=== PATIENT | male | born 1950 | race Caucasian/White ===

== ENCOUNTER → 2021-02-07 | Outpatient (CLI) | payer MEDICARE, OTHER ==
[~2021-02-07] MED LIST: ERGO400 PO; FISH1000 PO; HYDCOR10 PO; HYDR1TAB94 PO; LEVO750 PO; MAGCIT300 PO; METR500 PO; MULTI VITAMIN1 EACH PO; PRED20 PO; PROM25 PO; SULTRIDS PO; TOCO1000 PO; VITAMINS
== END | disposition home or self-care (01) ==
LOC: LAB 10:00 → LAB SHORT 10:00
DX: L82.1 Other seborrheic keratosis (principal); L08.9 Local infection of the skin and subcutaneous tissue, unspecified
CPT/HCPCS: 87070; 87077; 87186; 87205

== ENCOUNTER 2021-08-20 11:24 | Emergency (ER) | payer MEDICARE, OTHER ==
[~2021-08-20] VITALS: Ht 180.3 cm; Wt 95.2 kg
[2021-08-20 12:09] LABS: BASOPHILS ABSOLUTE AUTO 0.04 K/mm3 (0.00-0.23); BASOPHILS PERCENT AUTO 1 % (0-2); EOSINOPHILS ABSOLUTE AUTO 0.21 K/mm3 (0.00-0.68); EOSINOPHILS PERCENT AUTO 3 % (0-6); Hematocrit 49.6 % (37.0-53.0); Hemoglobin 16.6 g/dL (13.5-17.5); IMMATURE GRAN ABSOLUTE AUTO 0.02 K/mm3 (0.00-0.10); IMMATURE GRAN PERCENT AUTO 0 % (0-1); LYMPHOCYTES ABSOLUTE AUTO 1.93 K/mm3 (0.84-5.20); LYMPHOCYTES PERCENT AUTO 31 % (21-46); MONOCYTES ABSOLUTE AUTO 0.82 K/mm3 (0.16-1.47); MONOCYTES PERCENT AUTO 13 % (4-13); Mean Corpuscular HGB 30.4 pg (26.0-34.0); Mean Corpuscular HGB Conc 33.5 g/dL (31.5-36.5); Mean Corpuscular Volume 91 fL (80-100); NEUTROPHILS ABSOLUTE AUTO 3.27 K/mm3 (1.96-9.15); NEUTROPHILS PERCENT AUTO 52 % (41-73); Platelet Count 279 K/mm3 (150-400); RDW Coefficient Variation 12.3 % (11.7-14.2); RDW Standard Deviation 40.7 fL (35.1-46.3); Red Blood Cell Count 5.46 M/mm3 (4.30-5.90); White Blood Cell Count 6.29 K/mm3 (4.00-11.30)
[2021-08-20 12:25] LABS: Alanine Aminotransfer (ALT/SGP 36 U/L (12-78); Albumin, Blood 3.5 g/dL (3.4-5.0); Alk Phos 89 U/L (50-136); Anion Gap 4 mmol/L (6-16); Aspartate Aminotrans (AST/SGOT 26 U/L (12-37); Bilirubin, Total 0.4 mg/dL (0.1-1.0); Blood Urea Nitrogen 14 mg/dL (8-24); Bun/Creatinine Ratio 12.6 (12.0-20.0); CO2, Blood 31 mmol/L (21-32); Calcium, Blood 9.6 mg/dL (8.5-10.1); Chloride, Blood 105 mmol/L (98-108); Creatinine, Blood 1.11 mg/dL (0.60-1.20); Globulin, Blood 3.5 g/dL (2.2-4.0); Glomerular Filtration Rate >60 (60-); Glucose, Blood 108 mg/dL (70-99); Potassium, Blood 4.1 mmol/L (3.5-5.5); Sodium, Blood 140 mmol/L (136-145)
[2021-08-20 15:17] LABS: Influenza A, PCR NEGATIVE (NEGATIVE); Influenza B, PCR NEGATIVE (NEGATIVE); Resp Syncytial Virus, PCR NEGATIVE (NEGATIVE); SARS-Cov-2 (COVID-19) PCR, MMC NEGATIVE (NEGATIVE)
== END 2021-08-20 15:31 | disposition short-term general hospital (02) ==
LOC: ER 11:24
PROVIDERS: Emergency Medicine; Physician Assistant
DX: G93.89 Other specified disorders of brain (principal); Z20.822 Contact with and (suspected) exposure to COVID-19; Z86.718 Personal history of other venous thrombosis and embolism
CPT/HCPCS: 0241U; 36415; 70450; 80053; 82947; 85025; 93005; 93010; A9270; J2550; J7120

== ENCOUNTER 2021-12-11 01:11 | Day surgery (SDC) | payer MEDICARE, OTHER ==
[2021-12-11] MEDS ORDERED: SENN187 PO (09:55)
[2021-12-11 11:44] LABS: Bun/Creatinine Ratio 13.8 (12.0-20.0); Calcium, Blood 8.5 mg/dL (8.5-10.1); Creatinine, Blood 1.38 mg/dL (0.60-1.20); Potassium, Blood 3.9 mmol/L (3.5-5.5)
== END 2021-12-11 10:57 | disposition home or self-care (01) ==
LOC: ATC 01:11
PROVIDERS: Nurse Practitioner Acute Care
DX: C85.89 Other specified types of non-Hodgkin lymphoma, extranodal and solid organ sites (principal); G40.909 Epilepsy, unspecified, not intractable, without status epilepticus
CPT/HCPCS: 80048; 96360; J1642; J7030

== ENCOUNTER 2022-02-05 00:49 | Day surgery (SDC) | payer MEDICARE, OTHER ==
[~2022-02-05 00:49] MED LIST changes: +SENN187 PO
[2022-02-05 15:51] LABS: Albumin, Blood 3.3 g/dL (3.4-5.0); Albumin/Globulin Ratio 1.1 (0.8-1.8); Bilirubin, Total 0.3 mg/dL (0.1-1.0); Bun/Creatinine Ratio 15.8 (12.0-20.0); Calcium, Blood 8.4 mg/dL (8.5-10.1); Creatinine, Blood 1.14 mg/dL (0.60-1.20); Globulin, Blood 2.9 g/dL (2.2-4.0); Potassium, Blood 3.8 mmol/L (3.5-5.5); Total Protein, Blood 6.2 g/dL (6.4-8.2)
== END 2022-02-05 14:45 | disposition home or self-care (01) ==
LOC: ATC 00:49
PROVIDERS: Internal Medicine
DX: C85.89 Other specified types of non-Hodgkin lymphoma, extranodal and solid organ sites (principal); Z79.899 Other long term (current) drug therapy
CPT/HCPCS: 36591; 80053; J1642; J7030

== ENCOUNTER 2022-07-17 21:09 | Emergency (ER) | payer MEDICARE, OTHER ==
[~2022-07-17] VITALS: Ht 180.3 cm; Wt 93.9 kg
[2022-07-17 21:51] LABS: BASOPHILS ABSOLUTE AUTO 0.02 K/mm3 (0.00-0.23); BASOPHILS PERCENT AUTO 0 % (0-2); EOSINOPHILS ABSOLUTE AUTO 0.02 K/mm3 (0.00-0.68); EOSINOPHILS PERCENT AUTO 0 % (0-6); Hemoglobin 14.8 g/dL (13.5-17.5); IMMATURE GRAN ABSOLUTE AUTO 0.06 K/mm3 (0.00-0.10); IMMATURE GRAN PERCENT AUTO 1 % (0-1); LYMPHOCYTES ABSOLUTE AUTO 0.53 K/mm3 (0.84-5.20); LYMPHOCYTES PERCENT AUTO 8 % (21-46); MONOCYTES ABSOLUTE AUTO 0.07 K/mm3 (0.16-1.47); MONOCYTES PERCENT AUTO 1 % (4-13); Mean Corpuscular HGB 30.5 pg (26.0-34.0); Mean Corpuscular HGB Conc 35.2 g/dL (31.5-36.5); Mean Corpuscular Volume 87 fL (80-100); Mean Platelet Volume 9.2 fL (9.1-12.4); NEUTROPHILS ABSOLUTE AUTO 6.37 K/mm3 (1.96-9.15); NEUTROPHILS PERCENT AUTO 90 % (41-73); Platelet Count 163 K/mm3 (150-400); RDW Coefficient Variation 12.9 % (11.7-14.2); RDW Standard Deviation 40.2 fL (35.1-46.3); Red Blood Cell Count 4.85 M/mm3 (4.30-5.90); White Blood Cell Count 7.07 K/mm3 (4.00-11.30)
[2022-07-17 22:09] LABS: Albumin, Blood 3.6 g/dL (3.4-5.0); Albumin/Globulin Ratio 1.2 (0.8-1.8); Bilirubin, Total 0.4 mg/dL (0.1-1.0); Bun/Creatinine Ratio 19.5 (12.0-20.0); Calcium, Blood 8.7 mg/dL (8.5-10.1); Creatinine, Blood 1.18 mg/dL (0.60-1.20); Globulin, Blood 3.1 g/dL (2.2-4.0); Potassium, Blood 3.9 mmol/L (3.5-5.5); Total Protein, Blood 6.7 g/dL (6.4-8.2)
== END 2022-07-18 00:18 | disposition home or self-care (01) ==
LOC: ER 21:09
PROVIDERS: Student in an Organized Health Care Education/Training Program
DX: R25.1 Tremor, unspecified (principal); Z79.899 Other long term (current) drug therapy
CPT/HCPCS: 36415; 80053; 83690; 85025; J2405; J2765; J7030

== ENCOUNTER 2023-03-01 12:54 | Emergency (ER) | payer MEDICARE, OTHER ==
[~2023-03-01] VITALS: Ht 180.3 cm; Wt 88.5 kg
[2023-03-01 13:54] LABS: BASOPHILS ABSOLUTE AUTO 0.06 K/mm3 (0.00-0.23); BASOPHILS PERCENT AUTO 1 % (0-2); EOSINOPHILS ABSOLUTE AUTO 0.06 K/mm3 (0.00-0.68); EOSINOPHILS PERCENT AUTO 1 % (0-6); Hematocrit 49.9 % (37.0-53.0); Hemoglobin 17.4 g/dL (13.5-17.5); IMMATURE GRAN ABSOLUTE AUTO 0.03 K/mm3 (0.00-0.10); IMMATURE GRAN PERCENT AUTO 0 % (0-1); LYMPHOCYTES ABSOLUTE AUTO 1.29 K/mm3 (0.84-5.20); LYMPHOCYTES PERCENT AUTO 15 % (21-46); MONOCYTES ABSOLUTE AUTO 0.73 K/mm3 (0.16-1.47); MONOCYTES PERCENT AUTO 9 % (4-13); Mean Corpuscular HGB 30.6 pg (26.0-34.0); Mean Corpuscular HGB Conc 34.9 g/dL (31.5-36.5); Mean Corpuscular Volume 88 fL (80-100); Mean Platelet Volume 9.7 fL (9.1-12.4); NEUTROPHILS ABSOLUTE AUTO 6.44 K/mm3 (1.96-9.15); NEUTROPHILS PERCENT AUTO 75 % (41-73); Platelet Count 241 K/mm3 (150-400); RDW Standard Deviation 38.5 fL (35.1-46.3); Red Blood Cell Count 5.69 M/mm3 (4.30-5.90); White Blood Cell Count 8.61 K/mm3 (4.00-11.30)
[2023-03-01 13:57] LABS: Albumin, Blood 3.3 g/dL (3.4-5.0); Albumin/Globulin Ratio 0.9 (0.8-1.8); Bilirubin, Total 0.8 mg/dL (0.1-1.0); Bun/Creatinine Ratio 14.6 (12.0-20.0); Calcium, Blood 9.2 mg/dL (8.5-10.1); Creatinine, Blood 1.23 mg/dL (0.60-1.20); Globulin, Blood 3.7 g/dL (2.2-4.0)
[2023-03-01] MEDS ORDERED: FAMO20 PO (14:24)
[2023-03-01] MEDS ORDERED: DEXA2 PO (14:24)
[2023-03-01] MEDS ORDERED: GABA100 PO (14:25)
[2023-03-01 17:00] VITALS: BP 128/95
== END 2023-03-01 17:28 | disposition home or self-care (01) ==
LOC: ER 12:54
PROVIDERS: Physician Assistant
DX: G93.89 Other specified disorders of brain (principal); R26.81 Unsteadiness on feet; Z79.899 Other long term (current) drug therapy
CPT/HCPCS: 70553; 80053; 85025; 99285-25; A9579

== ENCOUNTER 2023-03-31 01:48 | Inpatient (IN) | payer MEDICARE ==
[~2023-03-31] VITALS: Ht 180.3 cm; Wt 88.4 kg
[~2023-03-31 01:48] MED LIST changes: +DEXA2 PO; +FAMO20 PO; +GABA100 PO
[2023-03-31] MEDS ORDERED: AZIT200SU (02:06)
[2023-03-31] MEDS ORDERED: CEFDINIR300 M4 (02:06)
[2023-03-31] MEDS ORDERED: FLUT.05NI (02:06)
[2023-03-31] MEDS ORDERED: PROC25S PR (02:07)
[2023-03-31 02:26] LABS: BASOPHILS ABSOLUTE AUTO 0.03 K/mm3 (0.00-0.23); BASOPHILS PERCENT AUTO 0 % (0-2); EOSINOPHILS ABSOLUTE AUTO 0.05 K/mm3 (0.00-0.68); EOSINOPHILS PERCENT AUTO 0 % (0-6); Hematocrit 45.1 % (37.0-53.0); Hemoglobin 15.9 g/dL (13.5-17.5); IMMATURE GRAN ABSOLUTE AUTO 0.02 K/mm3 (0.00-0.10); IMMATURE GRAN PERCENT AUTO 0 % (0-1); LYMPHOCYTES PERCENT AUTO 10 % (21-46); MONOCYTES PERCENT AUTO 10 % (4-13); Mean Corpuscular HGB 30.6 pg (26.0-34.0); Mean Corpuscular HGB Conc 35.3 g/dL (31.5-36.5); Mean Corpuscular Volume 87 fL (80-100); Mean Platelet Volume 8.7 fL (9.1-12.4); NEUTROPHILS ABSOLUTE AUTO 9.16 K/mm3 (1.96-9.15); NEUTROPHILS PERCENT AUTO 79 % (41-73); Platelet Count 291 K/mm3 (150-400); RDW Coefficient Variation 12.7 % (11.7-14.2); Red Blood Cell Count 5.19 M/mm3 (4.30-5.90); White Blood Cell Count 11.56 K/mm3 (4.00-11.30)
[2023-03-31 02:41] LABS: Bun/Creatinine Ratio 14.5 (12.0-20.0); Calcium, Blood 9.1 mg/dL (8.5-10.1); Creatinine, Blood 1.17 mg/dL (0.60-1.20); Potassium, Blood 4.1 mmol/L (3.5-5.5)
[2023-03-31 04:26] LABS: Magnesium, Blood 2.1 mg/dL (1.6-2.4)
[2023-03-31 05:20] VITALS: BP 145/86
[2023-03-31 06:59] LABS: BASOPHILS ABSOLUTE AUTO 0.03 K/mm3 (0.00-0.23); BASOPHILS PERCENT AUTO 0 % (0-2); EOSINOPHILS ABSOLUTE AUTO 0.08 K/mm3 (0.00-0.68); EOSINOPHILS PERCENT AUTO 1 % (0-6); Hematocrit 40.3 % (37.0-53.0); Hemoglobin 14.3 g/dL (13.5-17.5); IMMATURE GRAN ABSOLUTE AUTO 0.03 K/mm3 (0.00-0.10); IMMATURE GRAN PERCENT AUTO 0 % (0-1); LYMPHOCYTES ABSOLUTE AUTO 0.92 K/mm3 (0.84-5.20); LYMPHOCYTES PERCENT AUTO 10 % (21-46); MONOCYTES ABSOLUTE AUTO 1.05 K/mm3 (0.16-1.47); MONOCYTES PERCENT AUTO 11 % (4-13); Mean Corpuscular HGB 31.2 pg (26.0-34.0); Mean Corpuscular HGB Conc 35.5 g/dL (31.5-36.5); Mean Corpuscular Volume 88 fL (80-100); Mean Platelet Volume 8.6 fL (9.1-12.4); NEUTROPHILS PERCENT AUTO 78 % (41-73); Platelet Count 242 K/mm3 (150-400); RDW Coefficient Variation 12.9 % (11.7-14.2); RDW Standard Deviation 41.4 fL (35.1-46.3); Red Blood Cell Count 4.58 M/mm3 (4.30-5.90); White Blood Cell Count 9.41 K/mm3 (4.00-11.30)
[2023-03-31 07:15] LABS: Albumin, Blood 2.4 g/dL (3.4-5.0); Albumin/Globulin Ratio 0.7 (0.8-1.8); Bilirubin, Total 0.4 mg/dL (0.1-1.0); Bun/Creatinine Ratio 16.5 (12.0-20.0); Calcium, Blood 8.8 mg/dL (8.5-10.1); Creatinine, Blood 1.09 mg/dL (0.60-1.20); Globulin, Blood 3.5 g/dL (2.2-4.0); Potassium, Blood 3.9 mmol/L (3.5-5.5); Total Protein, Blood 5.9 g/dL (6.4-8.2)
[2023-03-31 08:04] VITALS: BP 141/94
--- NOTE | 2023-03-31 08:05 | NUR ---
SHIFT SUMMARY PATIENT A&OX3, ARRIVED ON UNIT FROM ED AT 05:12 FOR ACUTE RESP FAILURE WITH RECENT HX OF PNEUMONIA. IS DEERING, SLOW TO RESPOND BUT ALERT AND ABLE TO MAKE NEEDS KNOWN. NO C/O PAIN, C/O DIFFICULTY BREATHING AT TIMES, PRODUCTIVE COUGH. DENIES FEELING LIGHT HEADED NOR DIZZY. STATES HE FELL AT HOME A WEEK AGO. AMBULATES VIA W/C AT HOME DUE TO BRAIN CA. STATES SINCE THEN HAS BEEN UNABLE TO WALK. PIV TO LEFT AC, SL, PATENT. IN NO ACUTE DISTRESS AT THIS TIME. EDUCATED PATIENT RE RISK OF INJURY WHILE O2 IN USE, VERBALIZED UNDERSTANDING, DENIES SMOKING. BED LOCKED, IN LOW POSITION, CALL LIGHT WITHIN REACH.
[2023-03-31 08:09] LABS: Base Excess Venous 5.8 mmol/L; Bicarbonate Venous 28.6 mmol/L (24.0-30.0); PCO2 Venous 46.9 mmHg (38-42); pH Blood Venous 7.42 (7.34-7.37)
[2023-03-31 10:31] LABS: Adenovirus Not Detected (NOT DETECT); Bordetella pertussis Not Detected (NOT DETECT); Chlamydophila pneumoniae Not Detected (NOT DETECT); Coronavirus 229E Not Detected (NOT DETECT); Coronavirus HKU1 Not Detected (NOT DETECT); Coronavirus NL63 Not Detected (NOT DETECT); Coronavirus OC43 Not Detected (NOT DETECT); Human Metapneumovirus Not Detected (NOT DETECT); Human Rhinovirus/Enterovirus Detected (NOT DETECT); Influenza A/2009-H1 Not Detected (NOT DETECT); Influenza A/H1 Not Detected (NOT DETECT); Influenza A/H3 Not Detected (NOT DETECT); Influenza B Not Detected (NOT DETECT); Mycoplasma pneumoniae Not Detected (NOT DETECT); Parainfluenza Virus 1 Not Detected (NOT DETECT); Parainfluenza Virus 2 Not Detected (NOT DETECT); Parainfluenza Virus 3 Not Detected (NOT DETECT); Parainfluenza Virus 4 Not Detected (NOT DETECT); Respiratory Syncytial Virus Not Detected (NOT DETECT); SARS-Cov-2 (COVID-19), BioFire Not Detected (NOT DETECT)
[2023-03-31 14:07] LABS: Acinetobacter baumannii DNA Not Detected copy/mL (NOT DETECT); Enterobacter cloacae DNA Not Detected copy/mL (NOT DETECT); Escherichia coli DNA Not Detected copy/mL (NOT DETECT)
[2023-03-31 14:08] LABS: Haemophilus influenzae DNA Not Detected copy/mL (NOT DETECT); Klebsiella aerogenes DNA Not Detected copy/mL (NOT DETECT); Klebsiella oxytoca DNA Not Detected copy/mL (NOT DETECT); Klebsiella pneumoniae DNA Not Detected copy/mL (NOT DETECT); Moraxella catarrhalis DNA Not Detected copy/mL (NOT DETECT); Proteus sp DNA Not Detected copy/mL (NOT DETECT); Pseudomonas aeruginosa DNA Not Detected copy/mL (NOT DETECT); Serratia marcescens DNA Not Detected copy/mL (NOT DETECT); Staphylococcus aureus DNA Not Detected copy/mL (NOT DETECT); Streptococcus agalactiae DNA Not Detected copy/mL (NOT DETECT); Streptococcus pneumoniae DNA Not Detected copy/mL (NOT DETECT); Streptococcus pyogenes DNA Not Detected copy/mL (NOT DETECT)
[2023-03-31 14:09] LABS: Adenovirus DNA Not Detected (NOT DETECT); Chlamydia pneumonia Not Detected (NOT DETECT); Human Coronavirus RNA Not Detected (NOT DETECT); Human Metapneumovirus RNA Not Detected (NOT DETECT); Influenza virus A RNA Not Detected (NOT DETECT); Influenza virus B RNA Not Detected (NOT DETECT); Legionella pneumophila Not Detected (NOT DETECT); Mycoplasma pneumoniae Not Detected (NOT DETECT); Parainfluenza virus RNA Not Detected (NOT DETECT); Respiratory syncytial Vir RNA Not Detected (NOT DETECT); Rhinovirus+Enterovirus RNA Detected (NOT DETECT)
--- NOTE | 2023-03-31 15:41 | NUR ---
Upon receiving a referral for spiritual care, I visited the patient. He struggles to speak, hear and see which make communication challenging but some how we make it work. Patient explains about his cancer and its effect on his brain and coordination. He then shares about his family and the solid and his Christain linda which provide strong support. He states that his deepest prayer is for his , Sherley, and having details sorted out so she can be ok after he dies. He is tearful as he speaks of this. He quietly sings a hymn about God holding the universe together and then how God will hold him together until it is time to go. I read Psalm 16 to him, which he says was very encouraging and uplifting. I then provide prayer for him which brings a new set of tears as he voices more appreciation and depth of linda that was strengthened. I will continue to remain available to the patient and family.
--- NOTE | 2023-03-31 18:35 | NUR ---
SHIFT SUMMARY: PT A/O X3, 2 ASSIST PIVOT TX TO BSC. PLEASANT AND COOPERATIVE WITH CARE. PT CONTINUES TO BE ON 2 LPM VIA NC. SPUTUM SAMPLE WAS NOT ADEQUATE AND NEEDS TO BE RESENT. PT HAD NO OTHER COMPLAINTS THROUGHOUT THE DAY. PT DOES NEED ASSISTANCE WITH EATING BUT HAS NO DIFFICULTY WITH SWALLOWING AT THIS TIME. PT CONTINUES TO COUGH UP LIGHT GREEN WHITE SPUTUM.
[2023-03-31 19:12] VITALS: BP 138/108
[2023-04-01 04:27] VITALS: BP 149/92
--- NOTE | 2023-04-01 05:28 | NUR ---
SHIFT SUMMARY PATIENT ALERT, SLOW SPEECH, BUT ABLE TO MAKE NEEDS KNOWN. DENIES PAIN NOR DISCOMFORT, OTHER THEN WHILE COUGHING. CONTINUES TO HAVE PRODUCTIVE COUGH. O2 2L VIA NC, CONTINUOUS PULSE OX MONITORING, MAINTAINING AT >90%. IN NO ACUTE DISTRESS OVERNIGHT, NO NEW CHANGES. PIV TO LEFT AC, PATENT, FLUSHING WELL. CONTINUES ON IV ABX THERAPY WITHOUT ANY APPARENT ASE NOTED. REVIEWED FIRE SAFETY AND INJURY RISK WHILE O2 IN USE, VERBALIZED UNDERSTANDING. BED IN LOW POSITION, HOB ELEVATED, CALL LIGHT WITHIN REACH.
[2023-04-01 07:19] VITALS: BP 153/93
--- NOTE | 2023-04-01 08:37 | NUR ---
pt attempting to get oob without calling, set off bed alarm, a/ox3, slow to answer, speech is garbled, assisted him to bsc with two person assist, once up bears weight well, but needs assist to stand and remain steady, cooperative with care, in to visit, lungs are courese t/o, more dim on right side all azar, on 2 liters o2 via n/c, resp even and unlabored, wet productive cough, hrr, tele in place running sr per monitor, see strip, no edema noted, ppp+1, cap refill <3 sec, vs stable, afebrile, piv site to lac, s.l., clear and patent, btx4, abd flat soft nontender, voids without diff, skin c/w/d, except for an abrasion to right side of forehead from fall at home, maew, not coodinated with movement, call light in reach.
--- NOTE | 2023-04-01 10:25 | NUR ---
Spoke with [facility] and Dr Holloway prior to visiting with Pt and discussed case. Dr Holloway and Dr Gutiérrez had discussion with Pt and spouse regarding hospice and comfort care. 72 year old male admitted to the hospital for Acute Respiratory Failure with Hypoxia. His medical history and comorbidities include: SIGN FABRICATOR Lymphoma with Intraocular Involvement, Diverticulitis, Adrenal Insufficiency, and DVT. Pt resting in bed upon arrival. Pt appears mildly dyspneic as evidenced by ability to speak in 1 to 2 word sentences only. Pt currently on oxygen via NC. Spouse Sherley at bedside. Offered therapeutic listening as Sherley reports she and Pt considering hospice in the past but Pt was not ready. Sherley and Pt report he is now ready. Educated on hospice philosophy with V/U made by both Pt and spouse. Offered therapeutic listening and answered questions. Discussed hospice agencies to choose from. [facility] would [facility] switch to [facility]. Discussed code status. Educated on life sustaining treatments including risks and implications to CPR/Intubation. Pt and spouse report they would like to switch Pt's code status to DNR and are agreeable to complete POLST before D/C from the hospital. Discussed options for continuing current plan of care until D/C with hospice or switching to comfort care. Pt would like to continue current treatment until D/C. Spoke with Dr Holloway and placed order for DNR in [facility] per V/O from Dr Holloway. Palliative Care will remain available for supportive and therapeutic visits.
--- NOTE | 2023-04-01 11:49 | NUR ---
pt in room, asked to get him up to chair, film processing utility worker and nurse assisted him to chair call light in reach, and chair alarm activated, reinstructed to use call light before getting oob, call light in reach.
[2023-04-01 15:09] VITALS: BP 131/84
--- NOTE | 2023-04-01 18:18 | NUR ---
pt has had a good uneventful day overal, he did get a bit anxious to get up once when his was here and said he needs to get home. was able to redirect him easily. no further changes this shift. call light in reach.
--- NOTE | 2023-04-01 18:25 | NUR ---
pt denies any ignitable material throughout the day.
[2023-04-01 20:44] VITALS: BP 152/86
--- NOTE | 2023-04-01 22:39 | NUR ---
PATIENT OOB X3 WITHOUT 02 WHEN HIS BED ALARM HAS GONE OFF. INSTRUCTED EACH TIME USE OF THE CALL LIGHT AND IT'S NECESSITY FOR HIS SAFETY. CALL PLACED TO HOSPITALIST AND ORDER FOR TRAZODONE RECEIVED AND GIVEN. WILL CONTINUE CLOSE MONITORING FOR PATIENT SAFETY
--- NOTE | 2023-04-02 00:42 | NUR ---
PATIENT WITH A VERY HARSH HACKING NON PRODUCTIVE COUGH. STATES CHEST SORE AND HE'S MORE SOB DURING AND AFTER EACH EPISODE. CALL PLACED TO HOSPITALIST TO REQUEST COUGH MEDICINE.
--- NOTE | 2023-04-02 03:33 | NUR ---
AT 0200, PATIENT BECAME COMBATIVE TOWARDS THIS RN AND HIS ASSIGNED STARCH AND PROSIZE MIXER. HE WAS PUSHING PAST THIS STAFF INSISTING ON GETTING OOB AND GOING HOME. WHEN IT WAS EXPLAINED THAT IT WAS 0200 IN THE MORNING, AND THE PLAN WAS FOR HIM TO GO HOME IN THE MORNING, THE PATIENT BECAME MORE AGITATED. NIGHT HOSPITALIST WAS CALLED, AND ORDER FOR 1MG PO HALDOL WAS RECEIVED. AT THAT ADJUNCT, PATIENT WAS MOVED TO ROOM 353. REPORT GIVEN TO ALETHA TOLBERT. ONCOMING RN TO CONTACT NIGHT HOSPITALIST FOR ADDITIONAL ORDERS.
--- NOTE | 2023-04-02 06:42 | NUR ---
SHIFT SUMMARY NOC PT TRANSFER FROM 341 TO 353 DUE TO VIOLENT BEHAVIORS. I ASSUMED CARE @ 9720. PT CAME TO ROOM IN SAME BED IN RESTRAINTS WITH PERSONAL BELONGINGS.
[2023-04-02 07:57] VITALS: BP 131/87
--- NOTE | 2023-04-02 11:41 | NUR ---
Increased agitation this am with at bedside. Haldol and Seroquel given this am. Pt awake and calm at 1100. BLE restraints removed. Safety measures reviewed with and daughter. Will continue to monitor. Pt with increased cough with thin liquids. states has been thickening pt fluid at home. Dr. Holloway updated.
--- NOTE | 2023-04-02 14:42 | NUR ---
"Spiritual Care Visit | Pt./Family request Pt. is awake in bed. Family are present and welcome my visit. Pt. is unable to communicate clearly, and seems to be making attempts to leave his bed. Spouse is concerned and leaves to look for Pts. nurse. Facilitate a life review and establish rapport with Spouse and daughter. Read Psalm 103 to the Pt. and Pt. displayed evidence of listening and seemed to lower his anxiety. Spouse verbalized concern about being able to control Pt. when he comes home on hospice. Normalized the Pt. experience and shared confident support for the care they would receive from [facility]. Prayed for Pt. and family. Family verbalized gratitude for the spiritual care visit."
--- NOTE | 2023-04-02 17:19 | NUR ---
SHIFT SUMMARY: No acute changes this shift. Pt remain alert to self. Remains calm after Haldol and Seroquel this am. Increased agitation when needing to use urinal. Family at bedside. Tuff cuff restraints successfully removed. Pt with luis belt as ordered. Pt declines oral nutrition. Sips of thickened liq with pills. Per , plan remains to dc home with [facility]. Will continue to monitor this shift.
--- NOTE | 2023-04-02 18:38 | NUR ---
It appears 1258 vest restraint order was cancelled. Spoke with Dr. Gutiérrez at 1838 who states to replace order now.
[2023-04-02 20:50] VITALS: BP 138/93
[2023-04-03 05:27] VITALS: BP 111/94
--- NOTE | 2023-04-03 06:46 | NUR ---
SHIFT SUMMARY: NO NEW ACUTE CHANGES THIS SHIFT. PATIENT IS ALERT AND ORIENTED TO SELF. EPISODE OF AGITATION WHEN NEEDING TO USE THE URINAL AND REPOSITIONED. CAPRI VEST IN PLACED FOR SAFETY. FAMILY AT BEDSIDE THIS SHIFT. RECEIVED SCHEDULED MEDS PER EMAR. LUNGS COARSE T/O TO AUSCULTATION. PATIENT ON O2 2L VIA NC c SPO2 ABOVE 92% THIS SHIFT. VITAL SIGNS REVIEWED. BED ALARM ON FOR SAFETY. CALL LIGHT IN REACH. PATIENT EDUCATED OF NON-SMOKING POLICY, RISK OF INJURY AND IGNITION SOURCES WHILE ON O2 IN USE. PATIENT DENIES SMOKING AND STATED UNDERSTANDING.
[2023-04-03 07:33] VITALS: BP 125/79
[2023-04-03] MEDS ORDERED: MORP20L SL (10:54)
[2023-04-03] MEDS ORDERED: TRANSDERM-SCOP1 EA13 TD (10:55)
--- NOTE | 2023-04-03 12:33 | NUR ---
DISCHARGE REVIEWED WITH PT AND , VERBALIZED UNDERSTANDING MEDS AND INST. WILL BE SEEING HOSPICE WHEN HOME. THEY ALREADY ADVISED PER PT. PT RECENTLY PLACED ON COMFORT CARE. GOING HOME ON O2. FAMILY BROUGHT IN TANK FOR O2 TO DISCHARGE. PT WHEELED TO DOOR AT 1230
[2023-04-03] MEDS ORDERED: Seroquel Xr50 MG PO (14:35)
== END 2023-04-03 12:39 | disposition hospice, home (50) | DRG 193 ==
LOC: ER 01:48 → MEDS 04:59
PROVIDERS: Family Medicine; Student in an Organized Health Care Education/Training Program; ADMIT Student in an Organized Health Care Education/Training Program
DX: J12.9 Viral pneumonia, unspecified (principal); J96.01 Acute respiratory failure with hypoxia; J96.02 Acute respiratory failure with hypercapnia; C71.9 Malignant neoplasm of brain, unspecified; E27.40 Unspecified adrenocortical insufficiency; C85.90 Non-Hodgkin lymphoma, unspecified, unspecified site; D84.9 Immunodeficiency, unspecified; Z51.5 Encounter for palliative care; B97.10 Unspecified enterovirus as the cause of diseases classified elsewhere; K21.9 Gastro-esophageal reflux disease without esophagitis; G62.9 Polyneuropathy, unspecified; Z20.822 Contact with and (suspected) exposure to COVID-19; R45.1 Restlessness and agitation; Z87.19 Personal history of other diseases of the digestive system; Z86.718 Personal history of other venous thrombosis and embolism; Z79.899 Other long term (current) drug therapy; Z98.890 Other specified postprocedural states; Z79.2 Long term (current) use of antibiotics; Z79.51 Long term (current) use of inhaled steroids; Z78.1 Physical restraint status
CPT/HCPCS: 0202U; 36415; 71045; 80048; 80053; 82803; 83605; 83735; 84145; 85025; 87449; 87633; 94640; 94664; 94762; 96374; 99285-25; A9270; J0696; J1650; J7030; J7050